=== PATIENT | male | born 1965 | race African-American/Black ===

== ENCOUNTER 2017-10-08 06:13 | Emergency (ER) | payer OTHER ==
[~2017-10-08] VITALS: Ht 180.3 cm; Wt 106.0 kg
[2017-10-08] MEDS ORDERED: DIAZEPAM 5 MG TABLET PO SCH (12:22)
[2017-10-08] MEDS ORDERED: KETOROLAC 60MG/2ML VIAL IM STA (13:07)
[2017-10-08 13:50] VITALS: BP 140/100
== END 2017-10-08 14:28 | disposition home or self-care (01) ==
LOC: ER 08:03
DX: M54.2 Cervicalgia (principal); F12.10 Cannabis abuse, uncomplicated
CPT/HCPCS: 96372; 99283; J1885

== ENCOUNTER 2017-10-13 10:11 | Emergency (ER) | payer OTHER ==
[~2017-10-13] VITALS: Ht 180.3 cm; Wt 106.0 kg
[2017-10-13] MEDS ORDERED: KETOROLAC 60MG/2ML VIAL IM ONE (19:00)
[2017-10-13 19:40] VITALS: BP 144/96
== END 2017-10-13 19:45 | disposition home or self-care (01) ==
LOC: ER 11:27
DX: M79.1 Myalgia (principal); V43.52XA Car driver injured in collision with other type car in traffic accident, initial encounter; Y93.89 Activity, other specified; Y92.89 Other specified places as the place of occurrence of the external cause; Y99.8 Other external cause status
CPT/HCPCS: 96372; 99283; J1885; Z7610